=== PATIENT | male | born 1980 | race Hispanic/Latino ===

== ENCOUNTER 2023-05-24 22:42 | Emergency (ER) | payer OTHER ==
[~2023-05-24 22:42] MED LIST: ACET-2247 PO; CYCL10TA16 PO
[2023-05-24] MEDS ORDERED: HYDROCODONE/ACETAMINOPHEN 7.5/325 MG TAB ONE (23:33)
[2023-05-24] MEDS ORDERED: KETOROLAC 60 MG VIAL (30MG/ML) IM ONE (23:33)
[2023-05-24] MEDS ORDERED: ACYCLOVIR 200 MG CAPSULE ONE (23:33)
== END 2023-05-24 23:55 | disposition home or self-care (01) ==
LOC: EDH 22:42
DX: R21 Rash and other nonspecific skin eruption (principal); Z53.21 Procedure and treatment not carried out due to patient leaving prior to being seen by health care provider
CPT/HCPCS: J1885